=== PATIENT | female | born 1960 | race Caucasian/White ===

== ENCOUNTER 2017-04-29 18:47 | Inpatient (IN) | payer BC ==
[2017-04-29] MEDS ORDERED: LORazepam INJ* 2 MG/ML 1 ML VIAL IV PUSH ONE (19:29)
[2017-04-29 19:31] LABS: ABS Basophils 0 10^3/ul (0-0.2); ABS Eosinophils 0 10^3/ul (0-0.6); ABS Lymphocytes 0.8 10^3/ul (1.0-4.8); ABS Monocytes 0.9 10^3/ul (0-0.8); ABS Neutrophils 10.1 10^3/ul (1.5-7.7); ABS Nucleated RBC 0 10^3/ul; Eosinophil % 0 % (0-6); Hematocrit 38 % (35-47); Hemoglobin 13.1 g/dl (12.0-16.0); Lymphocyte % 6.9 % (25-47); Mean Corpuscular HGB Conc 34 g/dl (31-36); Mean Corpuscular Hemoglobin 32 pg (27-31); Mean Corpuscular Volume 94 fL (80-97); Mean Platelet Volume 8 um3 (7.4-10.4); Nucleated Red Blood Cells % 0; Platelet Count 235 10^3/ul (150-450); Red Cell Distribution Width 13 % (10.5-15); White Blood Count 11.9 10^3/ul (3.5-10.8)
[2017-04-29 19:52] LABS: EGFR Non-African American 46.6 (>60)
[2017-04-29] MEDS ORDERED: NS 0.9% 1000 ML* 1,000 ML IV ONE (20:17)
[2017-04-29] MEDS ORDERED: Insulin ASPART (NF) 100 UNIT/ML VIAL SUBCUT ONE (20:26)
--- NOTE | 2017-04-29 20:27 | RAD ---
Indication: Hypoxia. Single frontal view of the chest performed at 1928 hours was reviewed. Comparison is made with previous exam dated December 13, 2014. No mediastinal shift is noted. Heart is of normal size and configuration. Lung puckett appear hyperinflated. IMPRESSION: NO ACTIVE CARDIOPULMONARY DISEASE IS NOTED.
--- NOTE | 2017-04-29 20:35 | RAD ---
Indication: Hypoxia. Confusion. CT of the brain was performed without IV contrast. Ventricular structures are midline. No midline shift is noted. The extra-axial spaces are unremarkable. There is no evidence of intracranial mass or hemorrhage. No other high or low density lesions are identified. Mastoid air cells and paranasal sinuses are otherwise unremarkable. IMPRESSION: No intracranial mass or hemorrhage is noted.
[2017-04-29] MEDS ORDERED: Dextrose 50% Syringe 50 ML* 25 GM/50 ML SYRINGE IV PUSH PRN (20:40)
[2017-04-29] MEDS ORDERED: Insulin LISPRO* 1 UNITS UNIT SUBCUT ONE (20:40)
[2017-04-29 20:47] LABS: Urine Appearance Clear; Urine Blood 2+ (Negative); Urine Color Yellow; Urine Ketones Trace (Negative); Urine Protein Negative (Negative); Urine Specific Gravity 1.012 (1.010-1.030); Urine Urobilinogen Negative (Negative)
[2017-04-29] MEDS ORDERED: Potassium Chloride LIQUID* 20 MEQ PACKET PO ONE (21:55)
--- NOTE | 2017-04-29 22:16 | ED ---
Erika Mcintosh Gabriel, scribed for Isak Potts MD on 04/29/17 at 1859 . Altered Mental Status - HPI Summary HPI Summary: This patient is a 56 year old F BIBA to [facility] after she called 911 for confusion and smelling gas. EMS reports that she had a blood glucose of over 300 , O2 sat in the 70s on room air, and is anxious. Additionally they state she needs constant reassurance and will occasionally just scream in terror. The stove was on in her home without a flame, when EMS arrived they could smell natural gas and she had a window opened. EMS had a negative CO reading using their detector and placed her on a non-rebreather mask. Pt responds with letter when asked name and location. Natural gas levels were 8% in the house. LEVEL 5 CAVEAT: HPI limited due to severe AMS - History Of Current Complaint Chief Complaint: EDGeneral Stated Complaint: GAS EXPOSURE Hx Obtained From: EMS, Medical Records Onset/Duration: Still Present Timing: Constant Severity Initially: Severe Severity Currently: Severe Character: Confusion, Responsiveness - Allergies/Home Medications Allergies/Adverse Reactions: Allergies Allergy/AdvReac Type Severity Reaction Status Date / Time Penicillins Allergy See Comment Verified 04/29/17 21:05 Home Medications: Home Medications Cromolyn Sodium [Nasalcrom] 13 ml BOTH NARES DAILY PRN 04/29/17 [History Confirmed 04/29/17] Levothyroxine TAB* [Synthroid TAB*] 75 mcg PO DAILY 04/29/17 [History Confirmed 04/29/17] PMH/Surg Hx/FS Hx/Imm Hx Endocrine/Hematology History: Reports: Hx Thyroid Disease - Buddy's History: Reports: Hx Renal Disease - Cancer History Hx Chemotherapy: No Hx Radiation Therapy: No - Surgical History Surgery Procedure, Year, and Place: knee surgery; shoulder surgeries Infectious Disease History: Denies: Hx Clostridium Difficile, Hx Hepatitis, Hx Human Immunodeficiency Virus (HIV), Hx of Known/Suspected MRSA, Hx Shingles, Hx Tuberculosis, Hx Known/ Suspected VRE, Hx Known/Suspected VRSA, History Other Infectious Disease - Family History Known Family History: Negative: Cardiac Disease, Hypertension, Diabetes Family History: FHx of allergies. FHx of autoimmune disease - Social History Alcohol Use: None Substance Use Type: Reports: None Smoking Status (MU): Never Smoked Tobacco Review of Systems - ROS Summary Review of Systems Summary: LEVEL 5 CAVEAT: ROS limited due to severe AMS Positive: Shortness Of Breath Neurological: Other - AMS All Other Systems Reviewed And Are Negative: No Physical Exam - Summary Physical Exam Summary: Appearance: mildly pallor Skin: Warm, Dry, No rash, bruises on forehead and shins Eyes: Normal, PERRL, EOMI, sclera anicteric ENT: Normal Neck: Supple, nontender Respiratory: Clear to auscultation Cardiovascular: S1, S2, no murmur, no rub, no gallop Abdomen: Soft, nontender, no organomegaly Bowel sounds: Present Musculoskeletal: Normal, Strength/ROM Intact, no edema, pulses symmetrical Neurological: cranial nerves II-XII WNL, gait not tested, answers bizarrely, no appropriate responses, no verbal output other than single letters, does not follow commands. Triage Information Reviewed: Yes Vital Signs Reviewed: Yes Completion Of Physical Exam Limited Due To: Altered Mental Status, Level 5 Diagnostics - Laboratory Result Diagrams: 04/29/17 19:21 04/29/17 19:21 Lab Statement: Any lab studies that have been ordered have been reviewed, and results considered in the medical decision making process. - Radiology CXR Radiology Interpretation Completed By: Radiologist - NO ACTIVE CARDIOPULMONARY DISEASE IS NOTED. ED physician has reviewed this radiology report and agrees. - CT CT Brain CT Interpretation Completed By: Radiologist - no intracranial masses or hemorrhage. ED physician has reviewed this radiology report and agrees. - EKG 19:19 Cardiac Rate: Tachycardia EKG Rhythm: Sinus Bradycardia - at 101 BPM EKG Interpretation: ventricular bigeminy Re-Evaluation - Re-Evaluation First Eval Re-Evaluation Time: 19:55 Change: Improved Comment: Pt is awake and alert with some recollection of past events. She cannot explain why the natural gas was on. Altered Mental Statu Course/Dx - Course Assessment/Plan: This patient is a 56 year old F BIBA to [facility] after she called 911 for confusion and smelling gas. EMS reports that she had a blood glucose of over 300, O2 sat in the 70s on room air, and is anxious. Additionally they state she needs constant reassurance and will occasionally just scream in terror. The stove was on in her home without a flame, when EMS arrived they could smell natural gas and she had a window opened. EMS had a negative CO reading using their detector and placed her on a non-rebreather mask. Pt responds with letter when asked name and location. Natural gas levels were 8% in the house. LEVEL 5 CAVEAT: exam limited due to severe AMS. An EKG reveals ventricular bigeminy. CXR reveals, per radiologist, NO ACTIVE CARDIOPULMONARY DISEASE IS NOTED. CT Brain reveals, per radiologist, no intracranial masses or hemorrhage. Test results with no significant abnormalities except for a sodium of 123 and a blood glucose of 339. In the ED course the patient was given Ativan, Humalog, Novolog, and IV fluids. 1945 I contacted poison control they said there is no need for 100% oxygen. Dx desipramine hyponatremia and hypothyroidism. We discussed patient care with Dr. Lr and they accepted the patient for admission. Patient will be admitted. The patient is agreeable with this plan. - Diagnoses Provider Diagnoses: Desipramine hyponatremia , Hypothyroidism - Provider Notifications Discussed Care Of Patient With: William Lr Time Discussed With Above Provider: 20:05 Instructed by Provider To: Admit As Inpatient Discharge - Discharge Plan Condition: Fair Disposition: ADMITTED TO [facility] Referrals: Gayathri Kelley [Primary Care Provider] - The documentation as recorded by the Erika lucia Gabriel accurately reflects the service I personally performed and the decisions made by me, Isak Potts MD.
--- NOTE | 2017-04-29 23:41 | HP ---
H&P (Free Text) History and Physical: PCP: MADI Jimenez Date/Time: 04/29/2017 9502 CC: confusion HPI: Mrs Juárez is a 56YO female presenting via EMS which she called. Upon arrival, they reportedly discovered a natural gas leak with 8% within the home. Mrs Juárez was hanging out a window confused with an saO2 in the 70s which prompting increased to the 90s with [place] oxygen. After arriving to the ED, she reportedly cleared and became briefly lucid after lorazepam, but upon my evaluation was unable to provide any history and did not appear reliable for current status information as well. When asked why she had come in, she replied , "I don't know. I got home before I peed in the toilet." Other questions yielded similarly unrelated answers as she looked around the room confused. She is in no overt distress or objective pain. PMedHx unobtainable from patient hypothyroidism Ambulatory Orders Montelukast Sodium TAB* [Singulair 10 MG TAB*] 10 mg PO DAILY PRN 12/13/14 Cholecalciferol (Vitamin D3) [Vitamin D] 1,000 unit PO DAILY 01/28/17 Multivitamins/Minerals TAB* [Theragran/minerals TAB*] 1 tab PO DAILY 01/28/17 Niacin ER TAB* [Niaspan ER TAB*] 500 mg PO DAILY 01/28/17 Desipramine TAB* [Norpramin TAB*] 37.5 mg PO DAILY 02/02/17 Cromolyn Sodium [Nasalcrom] 13 ml BOTH NARES DAILY PRN 04/29/17 Levothyroxine TAB* [Synthroid TAB*] 67 mcg PO DAILY 04/29/17 Allergies Penicillins Allergy (Verified 04/29/17 21:05) See Comment pt states "I feel groggy after having it" PSurgHx unobtainable SocHx: unobtainable FamHx: unobtainable ROS: as above, otherwise reviewed and all were negative vitals: Vital Signs Temp 36.8 C 04/29/17 23:44 Pulse 50 04/29/17 23:44 Resp 18 04/29/17 23:44 BP 115/56 04/29/17 23:44 Pulse Ox 100 04/29/17 23:44 Intake & Output 04/29/17 04/29/1704/30/18 11:59 23:59 11:59 Intake Total 1000 Balance 1000 Weight 52.163 kg Intake: IV Fluids 1000 Constitutional: NAD, normally developed, thin white female HEENM: atraumatic; sclera/conjunctiva: anicteric/clear; hearing: clinically intact; oropharynx: clear, mucosa moist Neck: soft tissue: non-tender; thyroid: normal Pulmonary: clear to auscultation bilaterally, good aeration, no accessory muscle use CV: RR/RR, normal S1S2, no carotid bruit, no jugular venous distention, 2+ B DP/ PT, no edema Abdominal: soft, non-distended, non-tender, no rebound/guarding/rigidity, normoactive bowel sounds, no hepatosplenomegaly or masses, no costovertebral angle tenderness Musculoskeletal: general: grossly intact, no tenderness with palpation Integumental: normal appearance and texture of exposed skin Psychiatric orientation: AA&O to PP, not TS affect: confused mood: mildly agitated eye contact: poor content: unreliable memory: currently impaired responses: timely insight: poor Testing: Lab Results 04/29/17 04/29/17 04/29/17 Range/Units 19:21 19:21 19:21 WBC 11.9 H (3.5-10.8) 10^3/ul RBC 4.10 (4.0-5.4) 10^6/ul Hgb 13.1 (12.0-16.0) g/dl Hct 38 (35-47) % MCV 94 (80-97) fL MCH 32 H (27-31) pg MCHC 34 (31-36) g/dl RDW 13 (10.5-15) % Plt Count 235 (150-450) 10^3/ul MPV 8 (7.4-10.4) um3 Neut % (Auto) 85.6 H (38-83) % Lymph % (Auto) 6.9 L (25-47) % [place] % (Auto) 7.3 H (0-7) % Eos % (Auto) 0 (0-6) % Baso % (Auto) 0.2 (0-2) % Absolute Neuts (auto) 10.1 H (1.5-7.7) 10^3/ul Absolute Lymphs (auto) 0.8 L (1.0-4.8) 10^3/ul Absolute Monos (auto) 0.9 H (0-0.8) 10^3/ul Absolute Eos (auto) 0 (0-0.6) 10^3/ul Absolute Basos (auto) 0 (0-0.2) 10^3/ul Absolute Nucleated RBC 0 10^3/ul Nucleated RBC % 0 Carbon Monoxide Screen < 4 (<4.0) % Sodium 123 L (133-145) mmol/L Potassium 3.3 L (3.5-5.0) mmol/L Chloride 91 L (101-111) mmol/L Carbon Dioxide 18 L (22-32) mmol/L Anion Gap 14 H (2-11) mmol/L BUN 49 H (6-24) mg/dL Creatinine 1.19 H (0.51-0.95) mg/dL Est GFR ( Amer) 59.9 (>60) Est GFR (Non-Af Amer) 46.6 (>60) BUN/Creatinine Ratio 41.2 H (8-20) Glucose 372 H (70-100) mg/dL POC Glucose (mg/dL) (70-100) mg/dL Calcium 8.8 (8.6-10.3) mg/dL Total Bilirubin 1.50 H (0.2-1.0) mg/dL AST 96 H (13-39) U/L ALT 44 (7-52) U/L Alkaline Phosphatase 82 (34-104) U/L Total Protein 7.1 (6.4-8.9) g/dL Albumin 4.2 (3.2-5.2) g/dL Globulin 2.9 (2-4) g/dL Albumin/Globulin Ratio 1.4 (1-3) TSH (0.34-5.60) mcIU/mL Urine Color Urine Appearance Urine pH (5-9) Ur Specific [place] (1.010-1.030) Urine Protein (Negative) Urine Ketones (Negative) Urine Blood (Negative) Urine Nitrate (Negative) Urine Bilirubin (Negative) Urine Urobilinogen (Negative) Ur Leukocyte Esterase (Negative) Urine WBC (Auto) (Absent) Urine RBC (Auto) (Absent) Urine Bacteria (Absent) Hyaline Casts (Absent) Ur Random Sodium mmol/L Urine Glucose (Negative) Salicylates (<30) mg/dL Urine Opiates Screen (None Detect) Acetaminophen mcg/mL Ur Barbiturates Screen (None Detect) Ur Phencyclidine Scrn (None Detect) Ur Amphetamines Screen (None Detect) U Benzodiazepines Scrn (None Detect) Urine Cocaine Screen (None Detect) U Cannabinoids Screen (None Detect) Serum Alcohol (<10) mg/dL 04/29/17 04/29/17 04/29/17 Range/Units 19:35 19:35 19:35 WBC (3.5-10.8) 10^3/ul RBC (4.0-5.4) 10^6/ul Hgb (12.0-16.0) g/dl Hct (35-47) % MCV (80-97) fL MCH (27-31) pg MCHC (31-36) g/dl RDW (10.5-15) % Plt Count (150-450) 10^3/ul MPV (7.4-10.4) um3 Neut % (Auto) (38-83) % Lymph % (Auto) (25-47) % [place] % (Auto) (0-7) % Eos % (Auto) (0-6) % Baso % (Auto) (0-2) % Absolute Neuts (auto) (1.5-7.7) 10^3/ul Absolute Lymphs (auto) (1.0-4.8) 10^3/ul Absolute Monos (auto) (0-0.8) 10^3/ul Absolute Eos (auto) (0-0.6) 10^3/ul Absolute Basos (auto) (0-0.2) 10^3/ul Absolute Nucleated RBC 10^3/ul Nucleated RBC % Carbon Monoxide Screen (<4.0) % Sodium (133-145) mmol/L Potassium (3.5-5.0) mmol/L Chloride (101-111) mmol/L Carbon Dioxide (22-32) mmol/L Anion Gap (2-11) mmol/L BUN (6-24) mg/dL Creatinine (0.51-0.95) mg/dL Est GFR ( Amer) (>60) Est GFR (Non-Af Amer) (>60) BUN/Creatinine Ratio (8-20) Glucose (70-100) mg/dL POC Glucose (mg/dL) (70-100) mg/dL Calcium (8.6-10.3) mg/dL Total Bilirubin (0.2-1.0) mg/dL AST (13-39) U/L ALT (7-52) U/L Alkaline Phosphatase (34-104) U/L Total Protein (6.4-8.9) g/dL Albumin (3.2-5.2) g/dL Globulin (2-4) g/dL Albumin/Globulin Ratio (1-3) TSH (0.34-5.60) mcIU/mL Urine Color Yellow Urine Appearance Clear Urine pH 6.0 (5-9) Ur Specific [place] 1.012 (1.010-1.030) Urine Protein Negative (Negative) Urine Ketones Trace A (Negative) Urine Blood 2+ A (Negative) Urine Nitrate Negative (Negative) Urine Bilirubin Negative (Negative) Urine Urobilinogen Negative (Negative) Ur Leukocyte Esterase Negative (Negative) Urine WBC (Auto) Absent (Absent) Urine RBC (Auto) Trace(0-2/hpf) (Absent) Urine Bacteria Absent (Absent) Hyaline Casts Present A (Absent) Ur Random Sodium < 18 mmol/L Urine Glucose 3+(>=500 mg/dl) A (Negative) Salicylates (<30) mg/dL Urine Opiates Screen None detected (None Detect) Acetaminophen mcg/mL Ur Barbiturates Screen None detected (None Detect) Ur Phencyclidine Scrn None detected (None Detect) Ur Amphetamines Screen None detected (None Detect) U Benzodiazepines Scrn None detected (None Detect) Urine Cocaine Screen None detected (None Detect) U Cannabinoids Screen None detected (None Detect) Serum Alcohol (<10) mg/dL 04/29/17 04/29/17 04/29/17 Range/Units 19:37 20:22 22:18 WBC (3.5-10.8) 10^3/ul RBC (4.0-5.4) 10^6/ul Hgb (12.0-16.0) g/dl Hct (35-47) % MCV (80-97) fL MCH (27-31) pg MCHC (31-36) g/dl RDW (10.5-15) % Plt Count (150-450) 10^3/ul MPV (7.4-10.4) um3 Neut % (Auto) (38-83) % Lymph % (Auto) (25-47) % [place] % (Auto) (0-7) % Eos % (Auto) (0-6) % Baso % (Auto) (0-2) % Absolute Neuts (auto) (1.5-7.7) 10^3/ul Absolute Lymphs (auto) (1.0-4.8) 10^3/ul Absolute Monos (auto) (0-0.8) 10^3/ul Absolute Eos (auto) (0-0.6) 10^3/ul Absolute Basos (auto) (0-0.2) 10^3/ul Absolute Nucleated RBC 10^3/ul Nucleated RBC % Carbon Monoxide Screen (<4.0) % Sodium (133-145) mmol/L Potassium (3.5-5.0) mmol/L Chloride (101-111) mmol/L Carbon Dioxide (22-32) mmol/L Anion Gap (2-11) mmol/L BUN (6-24) mg/dL Creatinine (0.51-0.95) mg/dL Est GFR ( Amer) (>60) Est GFR (Non-Af Amer) (>60) BUN/Creatinine Ratio (8-20) Glucose (70-100) mg/dL POC Glucose (mg/dL) 339 H 241 H (70-100) mg/dL Calcium (8.6-10.3) mg/dL Total Bilirubin (0.2-1.0) mg/dL AST (13-39) U/L ALT (7-52) U/L Alkaline Phosphatase (34-104) U/L Total Protein (6.4-8.9) g/dL Albumin (3.2-5.2) g/dL Globulin (2-4) g/dL Albumin/Globulin Ratio (1-3) TSH 0.84 (0.34-5.60) mcIU/mL Urine Color Urine Appearance Urine pH (5-9) Ur Specific [place] (1.010-1.030) Urine Protein (Negative) Urine Ketones (Negative) Urine Blood (Negative) Urine Nitrate (Negative) Urine Bilirubin (Negative) Urine Urobilinogen (Negative) Ur Leukocyte Esterase (Negative) Urine WBC (Auto) (Absent) Urine RBC (Auto) (Absent) Urine Bacteria (Absent) Hyaline Casts (Absent) Ur Random Sodium mmol/L Urine Glucose (Negative) Salicylates < 2.50 (<30) mg/dL Urine Opiates Screen (None Detect) Acetaminophen < 15 mcg/mL Ur Barbiturates Screen (None Detect) Ur Phencyclidine Scrn (None Detect) Ur Amphetamines Screen (None Detect) U Benzodiazepines Scrn (None Detect) Urine Cocaine Screen (None Detect) U Cannabinoids Screen (None Detect) Serum Alcohol < 10 (<10) mg/dL ECG, personally reviewed: ventricular bigeminy rate 101, no ischemia CXR, personally reviewed: IMPRESSION: NO ACTIVE CARDIOPULMONARY DISEASE IS NOTED. CT brain WO, personally reviewed: IMPRESSION: No intracranial mass or hemorrhage is noted. Impression: 56F presenting with confusion after being found at home with a natural gas leak DIAGNOSIS & PLAN Primary AMS/confusion : obtain health summary from PCP : observation : telemetry : not explained by natural gas inhalation as this should have promptly resolved : ? underlying psychiatric disorder : supportive care hypoxia : supplemental oxygen hypoNatremia : IVFs, trend hyperglycemia : no known DX of DM : check A1c : given 5 units insulin in ED : ACHS glucometry w/ correctional insulin Secondary hypothyroidism : continue levothyroxine once reconciled Admission Rational: observation for confusion DVTp: SCDs Code Status: full HCP: unknown
[2017-04-30] MEDS ORDERED: CMCS:Melatonin (NF) 3 MG TAB PO PRN (00:37)
[2017-04-30] MEDS ORDERED: LORazepam INJ* 2 MG/ML 1 ML VIAL IV PRN (00:37)
[2017-04-30] MEDS ORDERED: Ondansetron INJ* 2 MG/ML VIAL IV PRN (00:37)
[2017-04-30] MEDS ORDERED: Albuterol 2.5 MG/3 ML NEB.SOL* (0.083%) INH PRN (00:37)
[2017-04-30] MEDS ORDERED: Montelukast Sodium TAB* 10 MG PO PRN (00:39)
[2017-04-30] MEDS: NS 0.9% 1000 ML* 1,000 ML IV SCH (02:10)
[2017-04-30] MEDS: Acetaminophen TAB* 325 MG PO PRN ×2 (04:51→12:23)
[2017-04-30 05:24] LABS: ABS Basophils 0 10^3/ul (0-0.2); ABS Eosinophils 0 10^3/ul (0-0.6); ABS Lymphocytes 1.5 10^3/ul (1.0-4.8); ABS Neutrophils 9.2 10^3/ul (1.5-7.7); ABS Nucleated RBC 0 10^3/ul; Eosinophil % 0.1 % (0-6); Hematocrit 35 % (35-47); Hemoglobin 12.5 g/dl (12.0-16.0); Lymphocyte % 12.5 % (25-47); Mean Corpuscular HGB Conc 36 g/dl (31-36); Mean Corpuscular Hemoglobin 32 pg (27-31); Mean Corpuscular Volume 90 fL (80-97); Mean Platelet Volume 8 um3 (7.4-10.4); Nucleated Red Blood Cells % 0; Platelet Count 258 10^3/ul (150-450); Red Blood Count 3.92 10^6/ul (4.0-5.4); Red Cell Distribution Width 13 % (10.5-15); White Blood Count 11.7 10^3/ul (3.5-10.8)
[2017-04-30 05:46] LABS: EGFR Non-African American 93.6 (>60)
[2017-04-30] MEDS: Levothyroxine TAB* 75 MCG TAB PO SCH (06:42)
[2017-04-30] MEDS: Insulin LISPRO* 1 UNITS UNIT SUBCUT SCH ×4 (08:57→21:07)
[2017-04-30] MEDS: Niacin ER TAB* 500 MG PO SCH (09:03)
[2017-04-30] MEDS: Docusate CAP* 100 MG PO SCH ×2 (09:03→21:07)
--- NOTE | 2017-04-30 11:16 | PN ---
Hospitalist Progress Note Date of Service: 04/30/17 I have seen and examined Ms. Juárez with Ban Peterson NP. Ms. Juárez was admitted for CO exposure (? this is unclear; she called EMS and was found confused in her home). This morning on my exam, she is afebrile, normotensive. She has an inappropriate affect with elevated mood She can tell me her name, but not where she is nor the year. She is unable to follow simple commands or answer simple questions. Her response to simple questions is often "L" or "A" or "two". She has poor coordination, poor recall. She is unable to count backwards or spell words. I attempted to reach her brother, who is the only contact listed, but the phone number is not a cell or home; it is a business. Check carboxyhemoglobin level. Consult neurology. Consult social work to find family.
--- NOTE | 2017-04-30 14:19 | CONSULT ---
Consult Consult: CRITICAL CARE MEDICINE DATE: 04/30/17 TIME: 1345 PRIMARY CARE PROVIDER: Ugo (but only seen once for maintenance) REFERRING PROVIDER: [place] REASON/CHIEF COMPLAINT: delirium vs encephalopathy HISTORY OF PRESENT ILLNESS: 56 F admitted with delirium vs encephalopathy thought to be due to CO poisoning, as she was found in house with window open, stove on with gas smell and initial sats 70. correct with O2. CO level neg. limited history so far, but not diabetic and yet hyperglycemic and hyponatremic on admission. these have since corrected. she remains altered, confused and has tca on her med list with signs of anticholenergic affects and brought to icu for observation and benzo needs. REVIEW OF SYSTEMS: As per HPI, limited sec to acuity. PAST MEDICAL HISTORY: As per HPI, limited sec to history. hypot4 MEDICATIONS: Reviewed, unconfirmed by me ALLERGIES: PCN? SOCIAL HISTORY: Reviewed, unclear. denies tob use, etoh or drugs FAMILY HISTORY: Noncontributory at present. PHYSICAL EXAM: Vital Signs: Reviewed. Neurologic: awake. answers a few question but then tangential vs abrupt. vilchis. no astreixis for me. tongue midline. cn intact. HEENT: anciteric. pupils non dil and a bit slow to react but they do. mm dry. Cardiovascular: S1 S2 about 100. Respiratory: clear bl Abdomen: soft, thin; nt Extremities: warm with hot at hands and feet. Access: piv LABS: Reviewed. IMAGING: Reviewed. ecg with bigeniney otherwise no acute injury MEDICATIONS: Reviewed. ASSESSMENT: 56 F Delirium vs encephalopathy vs even underlying dementia features that may need chronic vasc workup ultimately. Encephalopathy: unclear primary, and may just be multifactorial: sec to CO post state now?, hypoxia high on the list, metabolic hyponatremia/ hyperglycemia, vs toxic affect from tca with anticholenergic affects. PLAN: ICU observation IVF hydration Benzos as needed not a high degree of anticholenegeric affects to warrant more then prn benzos. can f/u ecg to ensure QT ok, and otherwise could need bicarb Serum bicarb was a touch low and ck up a bit. question again tca toxic affects vs post hypoxia. Time and observation. primary service trying to find family or other history info is she on the despiramine sec to bulimia?? likely needing psych eval soon and social work. continue to hold Supportive and preventative care as ordered. Will f/u with primary team Disposition: ICU obs Code Status: Full Critical Care Time: 35min FJuan Zheng DO
[2017-04-30] MEDS ORDERED: LORazepam INJ* 2 MG/ML 1 ML VIAL ONE (14:27)
[2017-04-30] MEDS: LORazepam INJ* 2 MG/ML 1 ML VIAL IV PUSH PRN ×2 (14:31→22:03)
--- NOTE | 2017-04-30 16:55 | PN ---
Subjective Date of Service: 04/30/17 Interval History: Examined patient at bedside confused to place and time. Unable to answer questions appropriately, responds with "A" or "L". Does answer some questions with no response. Follows some commands but not others. Not sure why she is here. Family History: Unchanged from Admission Social History: Unchanged from Admission Past Medical History: Unchanged from Admission Objective Active Medications: Acetaminophen (Tylenol Tab*) 650 mg PO Q6H PRN PRN Reason: FEVER/PAIN Last Admin: 04/30/17 12:23 Dose: 650 mg Albuterol (Ventolin 2.5 Mg/3 Ml Neb.Mariama*) 2.5 mg INH Q2H PRN PRN Reason: SOB/WHEEZING Dextrose (D50w Syringe 50 Ml*) 12.5 gm IV PUSH .FOR FS < 60 - SS PRN PRN Reason: FS < 60 Docusate Sodium (Colace Cap*) 200 mg PO BID [facility] Last Admin: 04/30/17 09:03 Dose: 200 mg Sodium Chloride (Ns 0.9% 1000 Ml*) 1,000 mls @ 125 mls/hr IV PER RATE [facility] Last Admin: 04/30/17 02:10 Dose: 125 mls/hr Insulin Human Lispro (Humalog*) 0 units SUBCUT ACHS [facility] PRN Reason: Protocol Last Admin: 04/30/17 11:53 Dose: Not Given Levothyroxine Sodium (Synthroid Tab*) 75 mcg PO DAILY@0600 [facility] Last Admin: 04/30/17 06:42 Dose: 75 mcg Lorazepam (Ativan Inj*) 1 mg IV PUSH Q4H PRN PRN Reason: ANXIETY Last Admin: 04/30/17 14:31 Dose: 1 mg Melatonin (Melatonin (Nf)) 3 mg PO BEDTIME PRN; Protocol PRN Reason: Sleep Montelukast Sodium (Singulair Tab*) 10 mg PO DAILY PRN PRN Reason: Allergy Symptoms Niacin (Niaspan Er Tab*) 500 mg PO DAILY [facility] Last Admin: 04/30/17 09:03 Dose: 500 mg Vital Signs - 8 hr 04/30/17 04/30/17 04/30/17 13:45 13:52 14:00 Temperature 100.6 F Pulse Rate 104 64 55 Respiratory 19 23 29 Rate Blood Pressure 134/70 132/65 118/72 (mmHg) O2 Sat by Pulse 97 98 97 Oximetry 04/30/17 04/30/17 04/30/17 14:15 14:30 14:31 Temperature Pulse Rate 56 55 Respiratory 28 24 21 Rate Blood Pressure 134/70 125/69 (mmHg) O2 Sat by Pulse 97 97 Oximetry 04/30/17 04/30/17 04/30/17 14:32 14:45 15:00 Temperature Pulse Rate 53 48 Respiratory 25 18 24 Rate Blood Pressure 117/64 (mmHg) O2 Sat by Pulse 97 98 Oximetry Oxygen Devices in Use Now: None Appearance: Confused, delusional, thin Eyes: No Scleral Icterus, PERRLA, - - pupils 3 mm bilat Ears/Nose/Mouth/Throat: Clear Oropharnyx, - - tongue is red and dry, mucous membranes are very dry Neck: NL Appearance and Movements; NL JVP, Trachea Midline Respiratory: Symmetrical Chest Expansion and Respiratory Effort, Clear to Auscultation Cardiovascular: NL Sounds; No Murmurs; No JVD, RRR Abdominal: NL Sounds; No Tenderness; No Distention Extremities: No Clubbing, Cyanosis - bilat hand and feet bright red that abruptly stops at the wrist and ankles Skin: No Rash or Ulcers Neurological: - - confused, delusional, alert oriented to name only, unable follow complex commands Nutrition: Taking PO's Result Diagrams: 04/30/17 05:11 04/30/17 05:11 Assess/Plan/Problems-Billing Assessment: Ms. Juárez is a 56 y.o female that was brought to the ER for evaluation of carbon monoxide exposure from a natural gas leak from her stove. Pt was found to have o2 saturations in the 70's on EMS's arrival. Patient remains confused and delusional, exhibiting bizarre behaviors. - Patient Problems (1) Confusion and disorientation Current Visit: Yes Status: Acute Code(s): F99 - MENTAL DISORDER, NOT OTHERWISE SPECIFIED SNOMED Code(s): 82373406 Comment: ~unknown etiology - CT brain WNL, urine clear ~suspect this could be related to carbon monoxide poisoning though her Carbon monoxide level was negative ~ She is also taking tricyclics despiermine- ? possible overdose though EKG without evidence of QT prolongation- poison control contacted and advised most critical period is the first 6 hours after ingestion, will obtain stat EKG now - monitor EKG. ~ ? if this could be possibly related to a manic episode will consult Psych when stable ~ neurology consulted ~ ammonia level drawn- slight elevation 55 (2) Hyperglycemia Current Visit: Yes Status: Acute Code(s): R73.9 - HYPERGLYCEMIA, UNSPECIFIED SNOMED Code(s): 45710514 Comment: resolved Blood glucose on arrival was 372 A1c 5.6 (3) Carbon monoxide exposure Current Visit: Yes Status: Acute Code(s): Z77.29 - CONTACT W AND (SUSPECTED ) EXPOSURE TO OTH HAZARDOUS SUBSTNC SNOMED Code(s): 86265227 Comment: ~ Carbom monoxide level - negative (4) Hyponatremia Current Visit: Yes Status: Acute Code(s): E87.1 - HYPO-OSMOLALITY AND HYPONATREMIA SNOMED Code(s): 16583386 Comment: Iv normal saline- initial NA level was 123 now 131 continue saline (5) DVT prophylaxis Current Visit: Yes Status: Acute Code(s): ZHP6744 - SNOMED Code(s): 633099876 Comment: SCD's (6) Full code status Current Visit: Yes Status: Acute Code(s): Z78.9 - OTHER SPECIFIED HEALTH STATUS SNOMED Code(s): 871400717 Status and Disposition: inpatient
--- NOTE | 2017-04-30 17:13 | CONS ---
NEUROLOGY CONSULTATION: DATE OF CONSULT: 04/30/17 LOCATION: She is in room 435. REFERRING PROVIDER: Bethany Golden DO PRIMARY CARE PHYSICIAN: Dr. Zuleyma Arizmendi. CHIEF COMPLAINT: Delirium. HISTORY OF PRESENT ILLNESS: Bindu Juárez is a 56-year-old woman who was brought in by ambulance to [facility] emergency room after she apparently called the ambulance herself. There were no bystanders and no other history from any other family member or friends. Ambulance records indicate that her fingerst ick blood sugar was 369 and her oxygen saturation was initially... DICTATION ENDS ABRUPTLY [id number]/CPS #: [id number]
--- NOTE | 2017-04-30 17:28 | PN ---
Hospitalist Progress Note Date of Service: 04/30/17 Patient transferred to the ICU per Dr. Rosenberg's recommendation~ questioning possible toxicity of desipramine and anticholinergic reaction. Patient is yelling, confused and delusional. Patient reevaluated at 1700 She has received Ativan 1 mg ~ she appears calm- she remains confusion with periods of clear mentation. States that she uses herbal supplements at home and that she freezes taro root and eats it. She continue to have periods of delusional thoughts. She continue to be confused to place and time. stating that the year is 1959.
--- NOTE | 2017-04-30 18:28 | CONS ---
NEUROLOGY CONSULTATION: ADDENDUM: Ambulance records indicate that her fingerstick blood sugar was 369 and her heart rate was in the 50s. She was very confused. Oxygen saturation was apparently around 80% and perhaps lower and came up to 100% with supplemental oxygen by mask. In the emergency room, she was described as extremely confused and uncooperative. She was afebrile and blood pressure was 152/58 initially. Heart rate was recorded as little as 47 and as high as 93, but she has been tachycardic here on the floor. Her initial laboratory studies were notable for an elevated blood glucose at 372, which came down rapidly and has been normal since. Her carbon dioxide was low at 18 and her sodium was low at 123. It was corrected to 131 within about 10 hours. Her AST was somewhat elevated at 84 and ammonia level mildly elevated at 55. Her white blood cell count was slightly elevated at 11.9 with 85.6% neutrophils. Carbon monoxide screen was less than 4%. She continued to be very confused and agitated on the medical floor. She has been yelling out repeatedly. She has been on bigeminy on telemetry typically running about 100 beats per minute. This is apparently old as she was evaluated about a year ago by Dr. Wilburn in preparation for a colonoscopy. HOME MEDICATIONS: Were listed as: 1. Levothyroxine. 2. Cromolyn. 3. Multivitamins. 4. Desipramine 37.5 mg. 5. Singulair 10 mg. 6. Vitamin D. I spoke with her primary care provider, Dr. Zuleyma Arizmendi. She had last seen her about a year ago and was not aware of her being on desipramine. She said that the patient believes she has dog allergies and wears a mask walking down the street. She is not aware of any specific psychiatric diagnosis, however. The patient is able to answer some questions, but is very unreliable and yells out repeatedly. She denies having headaches several times, but then states that she has a headache. I asked her if she had taken her desipramine today and she just looks at me and does not answer. It is hard to get any other consistent responses regarding review of systems. SOCIAL HISTORY: According to the medical record, she is a nonsmoker and no history of alcohol abuse. FAMILY HISTORY: Unobtainable. PHYSICAL EXAM: She is extremely thin woman who looks very undernourished. Her skin is extremely warm, especially her hands and her feet, which are also red and slightly edematous. Her mouth is extremely dry. Her skin is a little bit moist. Other than redness, I do not see any rashes. There is no evidence of head trauma. Her neck is supple. Most recent vital signs: Temperature 97.9 with a T-max of 100.4 by temporal scan early this morning. Blood pressure most recently 140/60, heart rate is listed as 54 but on the monitor it is running close to 100 in bigeminy. Respiratory rate 20, oxygen saturation is 100% on nasal cannula 2.5 L. Heart is in irregular rhythm and sounds to be in bigeminy. I do not hear murmurs. Lungs are clear anterolaterally. Carotid pulses are bounding and there are no cervical bruits. Oral mucosa is very dry, but I do not see any oral trauma. Neurologically, pupils react weakly from 4 down to about 3 mm. Funduscopic exam reveals sharp disks bilaterally. She tends to fix her gaze off to the left looking at the wall and reading the sign with her vitals and other information on it, but does look about the room fully. She does respond to finger counting bilaterally with double simultaneous stimulation correctly. Facial musculature is symmetric. Nasal tickle to cotton is symmetric. Speech is fairly clear as she yells out various words. Motor exam reveals normal tone in the limbs. She has a diffuse decreased muscle bulk, which does not appear to be particularly weak. There is no drift of the limbs. There is a little myoclonus in the fingers but no asterixis or coarse tremors. She is not able to follow commands for [id number] or rapid alternating maneuvers. Reflexes are generally hypoactive, but present. Plantar responses are flexor bilaterally. She is somewhat hypervigilant, but extremely inattentive. She yells out "Trump " and other single words repetitively. Occasionally, she stops to answer a question, but then her attention drifts off again. DIAGNOSTIC STUDIES/LAB DATA: Includes a CT of the brain, which I reviewed the images of and which was interpreted as normal. Carbon monoxide screen both yesterday and today is less than 4%. Chemistry is notable for a sodium of 123 when she came in, up to 131 by 5 this morning. Carbon dioxide was 18 when she came in, 20 at 5 this morning. Her blood glucose at admission was 372 and by this morning was 93. Her AST is elevated at 84 and was 96 yesterday. Ammonia elevated this morning at 55. TSH normal on admission at 0.94. Urinalysis on admission, specific gravity of 1.002, pH 6, 2+ blood, 3+ glucose. There is no CPK done as of yet. Urine tox screen from admission is negative. IMPRESSION: Agitated delirium in the setting of apparent natural gas toxin exposure. She has stigmata of anticholinergic toxicity and I am suspicious she may have overdosed on a tricyclic antidepressant. I have asked the Lab to send out a desipramine and imipramine level on the blood that was drawn in the ER and they do have a tube available. I recommend that she be transferred to intensive care unit for close cardiac monitoring. I have ordered a CPK as well as the toxin levels. I spoke with Dr. Bethany Golden of the hospitalist service and relayed my concerns. A repeat EKG has been ordered. Her electrolytes and liver enzymes and renal function to be closely monitored as well as her cardiac function. If it does inspector returned materials that she had an overdose or attempted suicide by gas inhalation, then Psychiatry will of course need to be consulted when she is coherent. [id number]/[facility] #: [id number] [place]
[2017-05-01] MEDS: Levothyroxine TAB* 75 MCG TAB PO SCH (05:25)
[2017-05-01 05:38] LABS: ABS Basophils 0 10^3/ul (0-0.2); ABS Eosinophils 0 10^3/ul (0-0.6); ABS Lymphocytes 1.4 10^3/ul (1.0-4.8); ABS Monocytes 0.5 10^3/ul (0-0.8); ABS Neutrophils 4.2 10^3/ul (1.5-7.7); ABS Nucleated RBC 0 10^3/ul; Eosinophil % 0.7 % (0-6); Hematocrit 33 % (35-47); Hemoglobin 11.4 g/dl (12.0-16.0); Mean Corpuscular HGB Conc 35 g/dl (31-36); Mean Corpuscular Hemoglobin 32 pg (27-31); Mean Corpuscular Volume 93 fL (80-97); Mean Platelet Volume 8 um3 (7.4-10.4); Nucleated Red Blood Cells % 0.1; Platelet Count 173 10^3/ul (150-450); Red Blood Count 3.53 10^6/ul (4.0-5.4); Red Cell Distribution Width 13 % (10.5-15); White Blood Count 6.2 10^3/ul (3.5-10.8)
[2017-05-01 05:58] LABS: EGFR Non-African American 139.5 (>60)
[2017-05-01] MEDS: Insulin LISPRO* 1 UNITS UNIT SUBCUT SCH ×4 (07:40→20:31)
[2017-05-01] MEDS: NS 0.9% 1000 ML* 1,000 ML IV SCH ×2 (07:47→16:57)
[2017-05-01] MEDS: Docusate CAP* 100 MG PO SCH ×2 (08:12→22:09)
[2017-05-01] MEDS: Niacin ER TAB* 500 MG PO SCH (08:13)
[2017-05-01] MEDS ORDERED: Potassium Chlor TAB* 10 MEQ TAB.ER PO ONE ×2 (08:47→16:20)
--- NOTE | 2017-05-01 10:16 | PN ---
Subjective Date of Service: 05/01/17 Interval History: states that she feels more alert today and head feels more clear. Pt denies chest pain or shortness of breath. denies n/v/d. Patient states that she think she knows why she was so confused yesterday. patient states that she was in a "bad state" for 3 days and did not eat or drink anything. When questioned about "bad state" she is unable to describe reason why she was unable to eat. Family History: Unchanged from Admission Social History: Unchanged from Admission Past Medical History: Unchanged from Admission Objective Active Medications: Acetaminophen (Tylenol Tab*) 650 mg PO Q6H PRN PRN Reason: FEVER/PAIN Last Admin: 04/30/17 12:23 Dose: 650 mg Albuterol (Ventolin 2.5 Mg/3 Ml Neb.Mraiama*) 2.5 mg INH Q2H PRN PRN Reason: SOB/WHEEZING Dextrose (D50w Syringe 50 Ml*) 12.5 gm IV PUSH .FOR FS < 60 - SS PRN PRN Reason: FS < 60 Docusate Sodium (Colace Cap*) 200 mg PO BID [facility] Last Admin: 05/01/17 08:12 Dose: Not Given Sodium Chloride (Ns 0.9% 1000 Ml*) 1,000 mls @ 125 mls/hr IV PER RATE [facility] Last Admin: 05/01/17 07:47 Dose: 125 mls/hr Insulin Human Lispro (Humalog*) 0 units SUBCUT ACHS [facility] PRN Reason: Protocol Last Admin: 05/01/17 07:40 Dose: Not Given Levothyroxine Sodium (Synthroid Tab*) 75 mcg PO DAILY@0600 [facility] Last Admin: 05/01/17 05:25 Dose: 75 mcg Lorazepam (Ativan Inj*) 1 mg IV PUSH Q4H PRN PRN Reason: ANXIETY Last Admin: 04/30/17 22:03 Dose: 1 mg Melatonin (Melatonin (Nf)) 3 mg PO BEDTIME PRN; Protocol PRN Reason: Sleep Montelukast Sodium (Singulair Tab*) 10 mg PO DAILY PRN PRN Reason: Allergy Symptoms Niacin (Niaspan Er Tab*) 500 mg PO DAILY [facility] Last Admin: 05/01/17 08:13 Dose: Not Given Vital Signs - 8 hr 05/01/17 05/01/17 05/01/17 03:00 03:01 04:00 Temperature 98.0 F Pulse Rate 41 41 43 Respiratory 18 22 18 Rate Blood Pressure 117/60 104/59 (mmHg) O2 Sat by Pulse 99 100 98 Oximetry 05/01/17 05/01/17 05/01/17 05:00 05:01 06:00 Temperature Pulse Rate 42 41 58 Respiratory 16 13 15 Rate Blood Pressure 109/63 (mmHg) O2 Sat by Pulse 99 98 99 Oximetry 05/01/17 05/01/17 05/01/17 06:01 07:00 07:36 Temperature 98.9 F Pulse Rate 39 38 Respiratory 19 19 Rate Blood Pressure 110/66 131/70 (mmHg) O2 Sat by Pulse 98 100 Oximetry 05/01/17 08:00 Temperature Pulse Rate 46 Respiratory 16 Rate Blood Pressure 116/67 (mmHg) O2 Sat by Pulse 98 Oximetry Oxygen Devices in Use Now: None Appearance: alert, appears comfortable resting in bed Eyes: No Scleral Icterus Ears/Nose/Mouth/Throat: Clear Oropharnyx, Mucous Membranes Moist Neck: NL Appearance and Movements; NL JVP, Trachea Midline Respiratory: Symmetrical Chest Expansion and Respiratory Effort, Clear to Auscultation Cardiovascular: NL Sounds; No Murmurs; No JVD, No Edema Abdominal: NL Sounds; No Tenderness; No Distention Extremities: No Edema, No Clubbing, Cyanosis Skin: No Rash or Ulcers Neurological: Alert and Oriented x 3 Nutrition: Taking PO's Result Diagrams: 05/01/17 05:12 05/01/17 15:33 Assess/Plan/Problems-Billing Assessment: Ms. Juárez is a 56 y.o female that was brought to the ER for evaluation of carbon monoxide exposure from a natural gas leak from her stove. Pt was found to have o2 saturations in the 70's on EMS's arrival. Patient remains confused and delusional, exhibiting bizarre behaviors. - Patient Problems (1) Confusion and disorientation Current Visit: Yes Status: Acute Code(s): F99 - MENTAL DISORDER, NOT OTHERWISE SPECIFIED SNOMED Code(s): 86768812 Comment: ~unknown etiology - CT brain WNL, urine clear ~suspect this could be related to carbon monoxide poisoning though her Carbon monoxide level was negative ~ She is also taking tricyclics desipramine- ? possible overdose though EKG without evidence of QT prolongation- poison control contacted and advised most critical period is the first 6 hours after ingestion~ patient reports that she did not take her desipramine for 3 days..but her story is inconsistent ~ ? if this could be possibly related to a manic episode- Psych was consulted ~ neurology consulted ~patient states that she did not eat or drink for approx. 3 days because she was in a bad state. (2) Hyperglycemia Current Visit: Yes Status: Acute Code(s): R73.9 - HYPERGLYCEMIA, UNSPECIFIED SNOMED Code(s): 51983697 Comment: resolved Blood glucose 92-141 A1c 5.6 (3) Carbon monoxide exposure Current Visit: Yes Status: Acute Code(s): Z77.29 - CONTACT W AND (SUSPECTED ) EXPOSURE TO OTH HAZARDOUS SUBSTNC SNOMED Code(s): 44168134 Comment: ~ Carbom monoxide level - negative (4) Hyponatremia Current Visit: Yes Status: Acute Code(s): E87.1 - HYPO-OSMOLALITY AND HYPONATREMIA SNOMED Code(s): 72721445 Comment: Iv normal saline- initial NA level was 123 Na level today was 135 ~ patient drinking water continue saline (5) Polyuria Current Visit: Yes Status: Acute Code(s): R35.8 - OTHER POLYURIA SNOMED Code(s): 28634121 Comment: Patient with 6000 cc urine output ~ suspect this could be related to drug toxcitiy ~desipramine level pending ~will continue to monitor BMP and Magnesium and replace as needed ~ will continue NS at 125 cc/hr ~ will consult nephrology in the AM if polyuria continues ~ DI in the differential (6) Hypokalemia Current Visit: Yes Status: Acute Code(s): E87.6 - HYPOKALEMIA SNOMED Code( s): 76588345 Comment: Potassium level 3.4 today ~ 30 meq kcl given po Repeat potassium level at 1500~ 3.4 ~ will give additional dose of potassium 40 meq (7) DVT prophylaxis Current Visit: Yes Status: Acute Code(s): KDU4593 - SNOMED Code(s): 648879589 Comment: SCD's (8) Full code status Current Visit: Yes Status: Acute Code(s): Z78.9 - OTHER SPECIFIED HEALTH STATUS SNOMED Code(s): 673537327 Status and Disposition: inpatient ~ will need SS and case management
[2017-05-01] MEDS ORDERED: Thiamine IV* 500 MG in NS 0.9% 250 ML* 250 ML IV ONE (11:09)
[2017-05-01] MEDS ORDERED: Cyanocobalamin INJ * 1,000 MCG/ML VIAL 1 ML VIAL IM ONE (11:10)
[2017-05-01] MEDS ORDERED: Magnesium Sulfate 2 GM IV* 2 GM/50 ML BAG IVPB ONE (14:33)
--- NOTE | 2017-05-01 14:50 | CONS ---
NEUROLOGY FOLLOWUP NOTE: DATE OF FOLLOWUP: 05/01/17. ADDENDUM: MEDICATIONS: Are reviewed and she is on: 1. Albuterol p.r.n. 2. Insulin p.r.n. but none given. 3. Colace 200 mg p.o. b.i.d. 4. Levothyroxine 75 mcg p.o. daily. 5. Melatonin 3 mg p.o. q.h.s. 6. Niaspan 500 mg p.o. daily. PHYSICAL EXAM: She remains extremely thin, but her mouth is no longer dry. Blood pressure 116/67, heart rate 90 and in bigeminy on the monitor, respiratory rate 16, oxygen saturation is 98% on room air. Temperature is 98.9. Skin is warm and dry, but no longer hot and erythematous. Neck remain supple. Neurologically, pupils react equally from 4 to 2 mm. Eye movements are normal and there is no nystagmus. Facial musculature is symmetric. Sensory exam reveals mild vibratory loss in the feet, but normal proprioception. Reflexes are intact at the knees if not brisk and ankle reflexes are hypoactive but present. Plantar responses remain flexor. There is no tremor, asterixis, or myoclonus. She is alert and oriented to person and place. She is not able to give a good reconciliation of what happened in the last few days. She does not remember coming to the hospital, but she believes she came by ambulance. She seems to be confabulating regarding details of the last several days. LABORATORY DATA: From today reveals a chemistry profile with a potassium of 3.4 and a sodium of 135. Creatinine remains normal at 0.46. Her CPK was elevated yesterday at 1484, down to 923 this morning. Calciums are little bit low at 8.2. Fingerstick glucose is 112 this morning. CBC this morning notable for hemoglobin dropped a little bit to 11.4, otherwise normal CBC. White blood cell count is normalized. IMPRESSION: Delirium suspected to be toxic. Also, from natural gas inhalation - induced hypoxia. She is certainly much better than yesterday. 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 She has desipramine and imipramine level pending from admission, which will probably not come back until next week. Psychiatry will see her even though she does not admit to any type of suicidal ideation. Her electrolytes are currently in good shape other than a slight low potassium, which she was given supplements of. I would recommend checking a thymine, and B12 level, and then supplementing it. She is certainly undernourished clinically. We will check her vitamin D level as well. I would recommend an MRI of the brain for tomorrow to look for evidence of central pontine myelinolysis or other abnormalities, which might have contributed to her mental status changes at admission. [id number]/[facility] #: [id number] [place]
[2017-05-01 16:09] LABS: EGFR Non-African American 136.1 (>60)
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
[2017-05-01 21:50] LABS: EGFR Non-African American 121.1 (>60)
[2017-05-01] MEDS: SODIUM FLUORIDE TOPICAL SCH (23:53)
[2017-05-01] MEDS: SODIUM BICARBONATE TOPICAL SCH (23:53)
[2017-05-02] MEDS: NS 0.9% 1000 ML* 1,000 ML IV SCH ×2 (02:16→09:25)
[2017-05-02] MEDS: Levothyroxine TAB* 75 MCG TAB PO SCH ×2 (05:48→05:53)
[2017-05-02 06:05] LABS: ABS Basophils 0 10^3/ul (0-0.2); ABS Eosinophils 0 10^3/ul (0-0.6); ABS Lymphocytes 0.8 10^3/ul (1.0-4.8); ABS Monocytes 0.5 10^3/ul (0-0.8); ABS Neutrophils 4.9 10^3/ul (1.5-7.7); ABS Nucleated RBC 0 10^3/ul; Eosinophil % 0.7 % (0-6); Hematocrit 34 % (35-47); Hemoglobin 11.8 g/dl (12.0-16.0); Lymphocyte % 13.1 % (25-47); Mean Corpuscular HGB Conc 35 g/dl (31-36); Mean Corpuscular Hemoglobin 32 pg (27-31); Mean Corpuscular Volume 93 fL (80-97); Mean Platelet Volume 8 um3 (7.4-10.4); Nucleated Red Blood Cells % 0; Platelet Count 177 10^3/ul (150-450); Red Blood Count 3.64 10^6/ul (4.0-5.4); Red Cell Distribution Width 13 % (10.5-15); White Blood Count 6.4 10^3/ul (3.5-10.8)
[2017-05-02 06:22] LABS: EGFR Non-African American 143.1 (>60)
[2017-05-02] MEDS ORDERED: Magnesium Sulfate 2 GM IV* 2 GM/50 ML BAG IVPB ONE (08:29)
[2017-05-02] MEDS: Insulin LISPRO* 1 UNITS UNIT SUBCUT SCH ×3 (09:14→19:30)
[2017-05-02] MEDS: Niacin ER TAB* 500 MG PO SCH (10:12)
[2017-05-02] MEDS: Docusate CAP* 100 MG PO SCH (10:12)
[2017-05-02] MEDS: SODIUM FLUORIDE TOPICAL SCH ×2 (11:15→22:39)
[2017-05-02] MEDS: SODIUM BICARBONATE TOPICAL SCH ×2 (11:15→22:39)
--- NOTE | 2017-05-02 12:27 | RAD ---
Indication: Pre-MRI scan. 2 views of the orbits demonstrates no evidence of radiopaque foreign body. IMPRESSION: No radiopaque foreign body is identified.
--- NOTE | 2017-05-02 12:29 | RAD ---
Indication: Pre-MRI foreign body. Flat plate of the abdomen demonstrates metallic body in the pelvis consistent with temperature sensing Hunter catheter. Precaution should be made. Otherwise no other radiopaque foreign body is noted. IMPRESSION: Temperature sensing Hunter catheter. Otherwise no foreign body is identified.
--- NOTE | 2017-05-02 13:00 | RAD ---
HISTORY: Delirium COMPARISONS: October 30, 2009 TECHNIQUE: The following sequences were obtained of the head: Sagittal T1-weighted images, axial T2-weighted images, axial FLAIR images, axial susceptibility weighted images, axial T1-weighted images. Additionally, axial diffusion-weighted images were obtained with calculated apparent diffusion coefficients. FINDINGS: HEMORRHAGE/INFARCT: There is no hemorrhage or acute infarct. MASSES/SHIFT: There is no mass or shift. EXTRA-AXIAL SPACES/MENINGES: There are no extra-axial fluid collections. SULCI AND VENTRICLES: The sulci and ventricles are normal in size and position for the patient's stated age. CEREBRUM: There are few scattered small foci of elevated T2/FLAIR signal within the periventricular and subcortical white matter. These can identified in retrospect on the previous examination and are stable, accounting for differences in technique. BRAINSTEM: There are no focal parenchymal abnormalities. CEREBELLUM: There are no focal parenchymal abnormalities. The cerebellar tonsils are normal in size and position. SELLA: The sella is normal. PINEAL: The pineal region is clear. CP ANGLE/TEMPORAL BONES: The labyrinthine structures are grossly normal. VESSELS: Normal flow-voids are noted within the visualized vertebral vasculature. DIFFUSION ABNORMALITIES: There are no diffusion abnormalities. PARANASAL SINUSES/MASTOIDS: The paranasal sinuses are clear. ORBITS: The orbits are unremarkable. BONES AND SOFT TISSUE: No bone or soft tissue abnormalities are noted. OTHER: None IMPRESSION: FEW, SCATTERED, SMALL FOCI OF ELEVATED T2/FLAIR SIGNAL WITHIN THE PERIVENTRICULAR AND SUBCORTICAL WHITE MATTER. WHILE THESE FINDINGS ARE NONSPECIFIC, THEY CAN BE SEEN IN ASSOCIATION WITH MIGRAINE HEADACHE, THE SEQUELA OF PREVIOUS INFECTION OR INFLAMMATION, AND CHRONIC SMALL VESSEL ISCHEMIA. DEMYELINATING DISEASE IS ALSO WITHIN THE DIFFERENTIAL, BUT IS CONSIDERED LESS LIKELY IN THE ABSENCE OF THE APPROPRIATE CLINICAL PRESENTATION.
[2017-05-02] MEDS ORDERED: NS 0.9% 1000 ML* 1,000 ML IV SCH (13:15)
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
[2017-05-02] MEDS ORDERED: Polyethylene Glycol 3350* 17 GM PACKET PO PRN (18:13)
[2017-05-02 20:27] LABS: EGFR Non-African American 118.5 (>60)
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
[2017-05-03] MEDS: Levothyroxine TAB* 75 MCG TAB PO SCH (05:51)
[2017-05-03 06:08] LABS: EGFR Non-African American 121.1 (>60)
[2017-05-03] MEDS: Insulin LISPRO* 1 UNITS UNIT SUBCUT SCH ×2 (07:40→16:58)
[2017-05-03] MEDS ORDERED: Potassium Chlor TAB* 10 MEQ TAB.ER PO ONE (08:33)
[2017-05-03] MEDS: SODIUM BICARBONATE TOPICAL SCH ×2 (09:22→20:41)
[2017-05-03] MEDS: SODIUM FLUORIDE TOPICAL SCH ×2 (09:22→20:41)
[2017-05-03] MEDS ORDERED: KCL 20 MEQ/100 ML IVPREMIX* 20 MEQ/100 ML BAG IV ONE (13:49)
--- NOTE | 2017-05-03 13:57 | PN ---
Subjective Date of Service: 05/03/17 Interval History: Patient states that she is feeling better. Denies chest pain or shortness of breath. Denies n/v/d. Does report mild lower abd pain, states that she feels full, no BM since admission , would like a stool softener. Family History: Unchanged from Admission Social History: Unchanged from Admission Past Medical History: Unchanged from Admission Objective Active Medications: Acetaminophen (Tylenol Tab*) 650 mg PO Q6H PRN PRN Reason: FEVER/PAIN Last Admin: 04/30/17 12:23 Dose: 650 mg Albuterol (Ventolin 2.5 Mg/3 Ml Neb.Mariama*) 2.5 mg INH Q2H PRN PRN Reason: SOB/WHEEZING Dextrose (D50w Syringe 50 Ml*) 12.5 gm IV PUSH .FOR FS < 60 - SS PRN PRN Reason: FS < 60 Insulin Human Lispro (Humalog*) 0 units SUBCUT 0800,1700 [facility] PRN Reason: Protocol Levothyroxine Sodium (Synthroid Tab*) 75 mcg PO DAILY@0600 [facility] Last Admin: 05/03/17 05:51 Dose: Not Given Lorazepam (Ativan Inj*) 1 mg IV PUSH Q4H PRN PRN Reason: ANXIETY Last Admin: 04/30/17 22:03 Dose: 1 mg Melatonin (Melatonin (Nf)) 3 mg PO BEDTIME PRN; Protocol PRN Reason: Sleep Montelukast Sodium (Singulair Tab*) 10 mg PO DAILY PRN PRN Reason: Allergy Symptoms Pto:Non Formulary ( Sodium Bicarb/Fl 1.1 % Tooth Powder) 1 dose TOPICAL BID [facility] Last Admin: 05/03/17 09:22 Dose: 1 dose Polyethylene Glycol/Electrolytes (Miralax*) 17 gm PO DAILY PRN PRN Reason: CONSTIPATION Vital Signs - 8 hr 05/03/17 05/03/17 05/03/17 07:25 08:06 11:18 Temperature 99.0 F 98.1 F Pulse Rate 93 44 Respiratory 14 16 14 Rate Blood Pressure 118/65 114/62 (mmHg) O2 Sat by Pulse 100 99 Oximetry Oxygen Devices in Use Now: None Appearance: awake and alert, appears comfortable, thin Eyes: No Scleral Icterus Ears/Nose/Mouth/Throat: Clear Oropharnyx, Mucous Membranes Moist Neck: NL Appearance and Movements; NL JVP, Trachea Midline Respiratory: Symmetrical Chest Expansion and Respiratory Effort, Clear to Auscultation Cardiovascular: NL Sounds; No Murmurs; No JVD, No Edema Abdominal: NL Sounds; No Tenderness; No Distention Extremities: No Edema, No Clubbing, Cyanosis Skin: No Rash or Ulcers Neurological: Alert and Oriented x 3 Result Diagrams: 05/02/17 05:35 05/03/17 05:41 Assess/Plan/Problems-Billing Assessment: Ms. Juárez is a 56 y.o female that was brought to the ER for evaluation of carbon monoxide exposure from a natural gas leak from her stove. Pt was found to have o2 saturations in the 70's on EMS's arrival. Patient remains confused and delusional, exhibiting bizarre behaviors. - Patient Problems (1) Confusion and disorientation Current Visit: Yes Status: Acute Code(s): F99 - MENTAL DISORDER, NOT OTHERWISE SPECIFIED SNOMED Code(s): 83920680 Comment: ~unknown etiology - CT brain WNL, urine clear ~ She is also taking tricyclics desipramine- suspect this is a possible toxic effect ~ patient states that she and her doctor have been increasing her dose, reports that she measures the medication on a scale and prepares her own medications. states that she recieves these medications from a compounding pharmacy. ~discussed the serious risks of measuring her own medications and the risk of taking to much. recommended that she not measure her own medications ~ evaluated by Psych ~not a threat to self or other and is safe for discharge when able . ~ neurology consulted ~appreciated ~Patient continues to have strick eating habits~ not eating alot~ instructed patient to have someone bring in food she would like to eat, as we are unable to cook food that she may bring in but we can heat already cooked food up if needed. (2) Hyperglycemia Current Visit: Yes Status: Acute Code(s): R73.9 - HYPERGLYCEMIA, UNSPECIFIED SNOMED Code(s): 47822515 Comment: resolved Blood glucose 95 A1c 5.6 Will change Accu checks to BID along with sliding scale (3) Carbon monoxide exposure Current Visit: Yes Status: Acute Code(s): Z77.29 - CONTACT W AND (SUSPECTED ) EXPOSURE TO OTH HAZARDOUS SUBSTNC SNOMED Code(s): 26731226 Comment: ~ Carbom monoxide level - negative (4) Hyponatremia Current Visit: Yes Status: Acute Code(s): E87.1 - HYPO-OSMOLALITY AND HYPONATREMIA SNOMED Code(s): 07958935 Comment: resolved initial NA level was 123 sodium level remains stable today at 136~ IVF stopped (5) Polyuria Current Visit: Yes Status: Acute Code(s): R35.8 - OTHER POLYURIA SNOMED Code(s): 55057488 Comment: Patient continue to have high urine output ~ improving ~ suspect this could be related to drug toxcitiy ~desipramine level pending ~will continue to monitor BMP and Magnesium and replace as needed ~ catheter removed l (6) Hypokalemia Current Visit: Yes Status: Acute Code(s): E87.6 - HYPOKALEMIA SNOMED Code( s): 58729587 Comment: Resolved~ will continue to monitor d/t high urine output. Potassium level 3.4 today ~ will replace with KCL 20 meq IV as she is refusing oral replacment today. (7) Hypomagnesemia Current Visit: Yes Status: Acute Code(s): E83.42 - HYPOMAGNESEMIA SNOMED Code(s): 925919274 Comment: resolved~ Magnesium level today 2.0 (8) DVT prophylaxis Current Visit: Yes Status: Acute Code(s): EJM8578 - SNOMED Code(s): 766265666 Comment: SCD's (9) Full code status Current Visit: Yes Status: Acute Code(s): Z78.9 - OTHER SPECIFIED HEALTH STATUS SNOMED Code(s): 899160850 Status and Disposition: inpatient ~ will need SS and case management
[2017-05-03] MEDS ORDERED: Potassium Chloride IV* 20 MEQ in NS 0.9% 100 ML* 100 ML IVPB ONE (15:00)
[2017-05-04] MEDS: Levothyroxine TAB* 75 MCG TAB PO SCH (04:29)
[2017-05-04] MEDS: Insulin LISPRO* 1 UNITS UNIT SUBCUT SCH ×2 (07:45→16:48)
--- NOTE | 2017-05-04 12:13 | PN ---
Subjective Date of Service: 05/04/17 Interval History: States that she is anxious about finding a ride home that will not cause her to have a allergic reaction to dogs. c/o of mild burning with urination Patient was up and ambulated in the room gait steady. Denies chest pain, or shortness of breath. Denies abd pain. n/v/d. Family History: Unchanged from Admission Social History: Unchanged from Admission Past Medical History: Unchanged from Admission Objective Active Medications: Acetaminophen (Tylenol Tab*) 650 mg PO Q6H PRN PRN Reason: FEVER/PAIN Last Admin: 04/30/17 12:23 Dose: 650 mg Albuterol (Ventolin 2.5 Mg/3 Ml Neb.Mariama*) 2.5 mg INH Q2H PRN PRN Reason: SOB/WHEEZING Dextrose (D50w Syringe 50 Ml*) 12.5 gm IV PUSH .FOR FS < 60 - SS PRN PRN Reason: FS < 60 Insulin Human Lispro (Humalog*) 0 units SUBCUT 0800,1700 [facility] PRN Reason: Protocol Last Admin: 05/04/17 07:45 Dose: Not Given Levothyroxine Sodium (Synthroid Tab*) 75 mcg PO DAILY@0600 [facility] Last Admin: 05/04/17 04:29 Dose: Not Given Lorazepam (Ativan Inj*) 1 mg IV PUSH Q4H PRN PRN Reason: ANXIETY Last Admin: 04/30/17 22:03 Dose: 1 mg Melatonin (Melatonin (Nf)) 3 mg PO BEDTIME PRN; Protocol PRN Reason: Sleep Montelukast Sodium (Singulair Tab*) 10 mg PO DAILY PRN PRN Reason: Allergy Symptoms Pto:Non Formulary ( Sodium Bicarb/Fl 1.1 % Tooth Powder) 1 dose TOPICAL BID [facility] Last Admin: 05/03/17 20:41 Dose: 1 dose Polyethylene Glycol/Electrolytes (Miralax*) 17 gm PO DAILY PRN PRN Reason: CONSTIPATION Last Admin: 05/03/17 15:29 Dose: 17 gm Vital Signs - 8 hr 05/04/17 05/04/17 05/04/17 07:22 07:45 08:08 Temperature 97.9 F 97.8 F Pulse Rate 44 44 Respiratory 18 18 16 Rate Blood Pressure 93/46 105/51 (mmHg) O2 Sat by Pulse 98 98 99 Oximetry 05/04/17 05/04/17 08:55 11:01 Temperature 98.9 F Pulse Rate 86 47 Respiratory 18 16 Rate Blood Pressure 101/52 (mmHg) O2 Sat by Pulse 98 98 Oximetry Oxygen Devices in Use Now: None Appearance: appears anxious sitting in bed, wearing a full face mask respirator Eyes: No Scleral Icterus Ears/Nose/Mouth/Throat: Clear Oropharnyx, Mucous Membranes Moist Neck: NL Appearance and Movements; NL JVP, Trachea Midline Respiratory: Symmetrical Chest Expansion and Respiratory Effort, Clear to Auscultation Cardiovascular: NL Sounds; No Murmurs; No JVD, No Edema Abdominal: NL Sounds; No Tenderness; No Distention Extremities: No Edema, No Clubbing, Cyanosis Skin: No Rash or Ulcers Neurological: Alert and Oriented x 3, NL Gait Nutrition: Taking PO's Result Diagrams: 05/02/17 05:35 05/04/17 05:47 Assess/Plan/Problems-Billing Assessment: Ms. Juárez is a 56 y.o female that was brought to the ER for evaluation of carbon monoxide exposure from a natural gas leak from her stove. Pt was found to have o2 saturations in the 70's on EMS's arrival. Patient remains confused and delusional, exhibiting bizarre behaviors. - Patient Problems (1) Confusion and disorientation Status: Acute Code(s): F99 - MENTAL DISORDER, NOT OTHERWISE SPECIFIED SNOMED Code(s): 11126320 Comment: ~unknown etiology - CT brain WNL, urine clear ~ She is also taking tricyclics desipramine- suspect this is a possible toxic effect ~ patient states that she and her doctor have been increasing her dose, reports that she measures the medication on a scale and prepares her own medications after dumping them out of the capules that she recieves from the compounding pharmacy. ~discussed again the serious risks of measuring her own medications and the risk of taking to much. recommended that she not measure her own medications and only take what is dispensed to her. ~instructed patient not to restart desipramine until she follows up with her doctor. ~ evaluated by Psych ~not a threat to self or other and is safe for discharge when able . ~ neurology consulted ~appreciated ~Patient continues to have strick eating habits~ not eating alot~ instructed patient to have someone bring in food she would like to eat, as we are unable to cook food that she may bring in but we can heat already cooked food up if needed. ~ Friend did bring some fruits and maple syrup for her to eat. (2) Hyperglycemia Status: Acute Code(s): R73.9 - HYPERGLYCEMIA, UNSPECIFIED SNOMED Code(s): 58870613 Comment: resolved Blood glucose 95 A1c 5.6 Will change Accu checks to BID along with sliding scale (3) Carbon monoxide exposure Status: Acute Code(s): Z77.29 - CONTACT W AND (SUSPECTED ) EXPOSURE TO OTH HAZARDOUS SUBSTNC SNOMED Code(s): 12009648 Comment: ~ Carbom monoxide level - negative (4) Hyponatremia Status: Acute Code(s): E87.1 - HYPO-OSMOLALITY AND HYPONATREMIA SNOMED Code( s): 12408307 Comment: resolved initial NA level was 123 sodium level remains stable today at 136~ IVF stopped (5) Polyuria Status: Acute Code(s): R35.8 - OTHER POLYURIA SNOMED Code(s): 51101144 Comment: Patient continue to have high urine output ~ improving ~ suspect this could be related to drug toxcitiy ~desipramine level pending ~will continue to monitor BMP and Magnesium and replace as needed ~ catheter removed l (6) UTI (urinary tract infection) Status: Acute Comment: Will give a dose of ceftriaxone 1 gram IV Will send in script for bactrim ds 1 tablet BID for 2 days for a total of 3 days treatment. (7) Hypokalemia Status: Acute Code(s): E87.6 - HYPOKALEMIA SNOMED Code(s): 05331259 Comment: Resolved~ will continue to monitor d/t high urine output. Potassium level 4.3 today ~ (8) Hypomagnesemia Status: Acute Code(s): E83.42 - HYPOMAGNESEMIA SNOMED Code(s): 383077213 Comment: resolved (9) DVT prophylaxis Status: Acute Code(s): PUS8305 - SNOMED Code(s): 234987493 Comment: SCD's (10) Full code status Status: Acute Code(s): Z78.9 - OTHER SPECIFIED HEALTH STATUS SNOMED Code(s) : 342905240 Status and Disposition: discharge home
[2017-05-04] MEDS: SODIUM FLUORIDE TOPICAL SCH (12:16)
[2017-05-04] MEDS: SODIUM BICARBONATE TOPICAL SCH (12:16)
[2017-05-04 13:45] LABS: Urine Appearance Cloudy; Urine Blood 2+ (Negative); Urine Color Yellow; Urine Ketones Negative (Negative); Urine Protein 1+(30 mg/dL) (Negative); Urine Specific Gravity 1.009 (1.010-1.030); Urine Urobilinogen Negative (Negative)
[2017-05-04] MEDS ORDERED: cefTRIAXone(*) 1 GM in NS 0.9% 50 ML* 50 ML IVPB ONE (15:01)
[2017-05-04 16:49] VITALS: BP 115/58
--- NOTE | 2017-05-05 16:37 | DS ---
DISCHARGE SUMMARY: DATE OF ADMISSION: 04/29/17 DATE OF DISCHARGE: 05/04/17 ATTENDING PHYSICIAN WHILE IN THE HOSPITAL: Chuck Pace MD* (dictated by Ban Peterson NP). PRIMARY CARE PROVIDER: Currently is Dr. Gayathri Yoo. She is switching to Dr. Jeana Walker. PRIMARY DIAGNOSES: 1. Desipramine toxicity. 2. Anticholinergic reaction. 3. Delirium. 4. Urinary tract infection. 5. Hyponatremia. 6. Hypokalemia. 7. Hypomagnesium. SECONDARY DIAGNOSES: 1. Hypothyroidism. 2. 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 3. Ventricular bigeminy. STUDIES COMPLETED WHILE IN THE HOSPITAL: She had a CT of the brain on 04/29/17 , radiologist impression: No intracranial mass or hemorrhage is noted. She had a chest x-ray on 04/29/17, no active cardiopulmonary disease is noted. She had electrocardiogram on 04/29/17, sinus tachycardia at a rate of 99. She had a MRI of the brain on 05/02/17, radiologist impression: Few scattered small foci of elevated T2 FLAIR signal within the periventricular and subcortical white matter, all these findings are nonspecific, they can be seen in association with migraine headaches as well as sequela of previous infection or inflammation and chronic small vessel ischemia, demyelination disease is also within the differential, but is considered less likely in the absence of appropriate clinical presentation. DISCHARGE MEDICATIONS: She will be discharged on Bactrim DS 1 tablet b.i.d. x2 days. Continued home medications: 1. She can resume her Synthroid. 2. Desipramine, she was advised not to restart this medication until followup with her physician. HISTORY OF PRESENT ILLNESS AND HOSPITAL COURSE: Ms. Juárez is a 56-year-old female who presented via EMS which they were called to her house for possible gas leak, it was noted that there was within the home, Ms. Juárez was hanging out of the window, confused with oxygen saturation of 70%, which promptly increased to 90% with nasal cannula oxygen. After arriving to the emergency room, she reportedly cleared and became briefly lucid after lorazepam , but upon the admitting provider's evaluation, she was unreliable, did not know how she got here, did not know where she was. She was very confused. While in the emergency room, she had a CAT scan of the head which was negative. She was given lorazepam which she cleared briefly from her state of delirium. While in the hospital, the patient became delusional and hallucinating and was transferred to ICU for closer monitoring. She also had a consultation done with Neurology. It is suspected that she had a toxic effect from the desipramine and an anticholinergic delirium reaction. She remained confused for approximately 2 days. She did clear with Ativan and did calm and was able to rest. Prior to the Ativan, she was yelling and screaming and unable to follow commands. Throughout her hospitalization, she was continued to be monitored. She did note to have polyuria, some hyponatremia and hypomagnesium, which her electrolytes were replaced as needed during her hospitalization. LABORATORY DATA: The patient's lab work was monitored throughout her hospitalization and was within normal limits at discharge. Her potassium level at discharge was 4.3, magnesium was 2.0, sodium was 134. Ms. Juárez is very self consumed with her allergy to DOGS and CATS. She does wear a full face respirator if she thinks she may come in contact with them. Today, Ms. Juárez is stable for discharge home. Upon discussing her discharge plan, the patient did become anxious and was concerned about how she would return home without exposure to dogs. Ms. Juárez was reassured that she would return home safely. At this time, Ms. Juárez is stable for discharge home. Ms. Juárez is stable for discharge home today. PHYSICAL EXAM: Vital signs are as follows: Temp was 98.3, heart rate was 60, respirations 16, O2 saturation was 98% on room air, blood pressure 115/58. DISCHARGE PLAN: 1. Ms. Juárez will be discharged home. 2. Activity as tolerated. 3. She should continue her regular diet. 4. For her urinary tract infection, she should continue Bactrim DS 1 tablet p.o. b.i.d. for 2 days. 5. Polyuria has resolved. 6. Hyperkalemia has resolved. 7. Hypomagnesium, resolved. 8. Ventricular bigeminy. The patient is asymptomatic. She had a full workup in April 2016 and at that time did not want any further treatment. Ms. Juárez continues to be asymptomatic with her ventricular bigeminy during her hospitalization. 9. Desipramine toxicity. The patient was advised not to continue desipramine until she followed up with Dr. Nuno for further directions. The patient was also advised not to break open capsules and measure her own medications and to take the dosing as provided to her from the compounding pharmacy that she uses as her scale is not calibrated and that this could cause dangerous side effects including toxicity an overdose. Ms. Juárez verbalized understanding. ASSESSMENT: Ms. Juárez should follow up with her primary care provider in 4 to 7 days. She was advised to return to the emergency room for any changes in mentation, shortness of breath or chest pain. This is a summary of her hospitalization. For further details, please see the entire medical record. TIME SPENT: Time spent on this discharge was approximately 60 minutes, greater than half the time was spent with the patient reviewing discharge plans and instructions. CONDITION ON DISCHARGE: Stable. BAN PETERSON NP [id number]/CPS #: [id number] [place]
== END 2017-05-04 18:26 | disposition home or self-care (01) | DRG 812 ==
LOC: ED 18:47 → MEDTELE 22:19 → OBSVTOIN 04-30 13:39 → ICU 04-30 13:47 → MEDTELE 05-01 14:34
PROVIDERS: ADMIT Hospitalist; ATTEND Internal Medicine
DX: T43.011A Poisoning by tricyclic antidepressants, accidental (unintentional), initial encounter (principal); E83.42 Hypomagnesemia; E87.1 Hypo-osmolality and hyponatremia; N39.0 Urinary tract infection, site not specified; R41.0 Disorientation, unspecified; E03.9 Hypothyroidism, unspecified; R73.9 Hyperglycemia, unspecified; T44.3X1A Poisoning by other parasympatholytics [anticholinergics and antimuscarinics] and spasmolytics, accidental (unintentional), initial encounter; R09.02 Hypoxemia; E86.0 Dehydration; Z77.29 Contact with and (suspected) exposure to other hazardous substances; F22 Delusional disorders; R35.8 Other polyuria; E87.6 Hypokalemia; K90.0 Celiac disease; F21 Schizotypal disorder; R00.8 Other abnormalities of heart beat; Z88.0 Allergy status to penicillin; Z83.2 Family history of diseases of the blood and blood-forming organs and certain disorders involving the immune mechanism; Z84.89 Family history of other specified conditions; Z91.09 Other allergy status, other than to drugs and biological substances; Y92.9 Unspecified place or not applicable
CPT/HCPCS: 36415; 70030; 70450; 70551; 71045; 74018; 80048; 80053; 80307; 80320; 80329; 80335; 81003; 81015; 82140; 82306; 82375; 82533; 82550; 82607; 83036; 83735; 83930; 83935; 84300; 84425; 84443; 84450; 84460; 85025; 87077; 87086; 87186; 93005; 94760; 99285; A9270-GY; G0480; J0696; J2060; J3411; J3420; J3475; J3480

== ENCOUNTER 2017-05-13 07:35 | Emergency (ER) | payer BC ==
[2017-05-13 08:03] VITALS: BP 126/66
--- NOTE | 2017-05-13 08:23 | UC ---
Complaint Female HPI - HPI Summary HPI Summary: PT WAS TX FOR UTI WITH BACTRIM - COMPLETED COURSE 05/10/17. YESTERDAY SX OF DYSURIA AND LOWER ABD PAIN RETURNED. NO FEVER OR NAUSEA. NO VAGINAL D/C. STATES SHE HAS NOT BEEN SEXUALLY ACTIVE IN A LONG TIME AND IS NOT CONCERNED ABOUT STD. PT HAS OVERALL MALAISE. - History Of Current Complaint Chief Complaint: UCGU Stated Complaint: URINARY ISSUE Time Seen by Provider: 05/13/17 08:11 Hx Obtained From: Patient Onset/Duration: Gradual Onset, Lasting Days, Still Present Severity Initially: Mild Severity Currently: Mild Pain Intensity: 1 Pain Scale Used: 0-10 Numeric Character: Burning Aggravating Factor(s): Urination Alleviating Factor(s): Nothing Associated Signs And Symptoms: Negative: Fever, Back Pain, Vaginal Bleeding/ Discharge, Vaginal Discharge, Nausea, Genital Swelling, Genital Blisters - Allergies/Home Medications Allergies/Adverse Reactions: Allergies Allergy/AdvReac Type Severity Reaction Status Date / Time Penicillins Allergy See Comment Verified 05/13/17 07:48 PMH/Surg Hx/FS Hx/Imm Hx - Additional Past Medical History Additional PMH: ALLERGIES Endocrine History: Hypothyroidism - Surgical History Surgical History: Yes Surgery Procedure, Year, and Place: knee surgery; shoulder surgeries - Family History Known Family History: Negative: Cardiac Disease, Hypertension, Diabetes Family History: FHx of allergies. FHx of autoimmune disease - Social History Alcohol Use: None Substance Use Type: None Smoking Status (MU): Never Smoked Tobacco Review of Systems Constitutional: Negative Skin: Negative Respiratory: Negative Cardiovascular: Negative Gastrointestinal: Abdominal Pain Genitourinary: Dysuria, Frequency, Vaginal/Penile Itching All Other Systems Reviewed And Are Negative: Yes Physical Exam Triage Information Reviewed: Yes Appearance: Well-Appearing, No Pain Distress, Well-Nourished Vital Signs: Initial Vital Signs Temp 99.5 F 05/13/17 07:52 Pulse 52 05/13/17 07:52 Resp 18 05/13/17 07:52 BP 126/66 05/13/17 07:52 Pulse Ox 99 05/13/17 07:52 Vital Signs Reviewed: Yes Eyes: Positive: Conjunctiva Clear ENT: Positive: Hearing grossly normal Neck: Positive: Supple Respiratory: Positive: No respiratory distress, No accessory muscle use Cardiovascular: Positive: Pulses Normal Abdomen Description: Positive: Soft, Other: - MILDLY TENDER SUPRAPUBIC REGION. NO REBOUND OR RIGIDITY. Negative: CVA Tenderness (R), CVA Tenderness (L), Distended, Guarding Pelvic Exam: Positive: External Exam Normal, No Cerv. Motion Tender, No Masses. Negative: Active Bleeding, Blood, Discharge, Lesions, Mass Musculoskeletal: Positive: No Edema Neurological: Positive: Alert Psychological: Positive: Age Appropriate Behavior Skin: Negative: rashes Diagnostics - Laboratory Diagnostic Studies Completed/Ordered: URINE DIP SP. GR. 1.010, 1+ BLOOD Complaint Female Dx - Course Course Of Treatment: PELVIC EXAM GROSSLY UNREMARKABLE. EXPECTED VAGINAL ATROPHY. SWAB FOR VAGINITIS OBTAINED. PT DECLINES STD TESTING. STATES NO SEXUAL CONTACT. URINE DIP WITH ONLY BLOOD. PT REPORTS A H/O MICROSCOPIC HEMATURIA. PT ADVISED TO CONTINUE TO FOLLOW WITH HER PCP OR UROLOGY FOR THIS. UNCLEAR CAUSE OF PT SX. ADVISED TO STAY HYDRATED AND F/U WITH PCP OR UROLOGY IF SX PERSIST. TO ED IF SX WORSEN. - Differential Dx/Diagnosis Provider Diagnoses: DYSURIA/PELVIC PAIN Discharge - Sign-Out/Discharge Documenting (check all that apply): Discharge - Discharge Plan Condition: Stable Disposition: HOME Patient Education Materials: Dysuria (ED), Pelvic Pain (ED) Referrals: Jeana Walker MD [Primary Care Provider] - If Needed Tristen Raya MD [Medical Doctor] - 2 Weeks Additional Instructions: Unclear cause of your symptoms today. Your urine dip showed some microscopic hematuria which you state is normal for you. Continue to follow this with your regular doctor or urologist. Pelvic exam was done and unremarkable. Swabs were taken to test for vaginitis. We will also send your urine specimen for culture to confirm no infection. Be sure to stay well hydrated. If your symptoms persist and all testing is negative would follow up with urology for further evaluation. Go to the ER without fail if you develop worsening pain, fever, darlin blood in the urine, inability to pass urine or any other concerning symptoms. - Billing Disposition and Condition Condition: STABLE Disposition: HOME
--- NOTE | 2017-05-15 17:07 | UC ---
- Progress Note Progress Note: Call patient and assure sx have resolved---If not follow with pcp no uti or vaginal infection noted on labs Discharge - Sign-Out/Discharge Documenting (check all that apply): Post-Discharge Follow Up - Discharge Plan Condition: Stable Disposition: HOME Patient Education Materials: Dysuria (ED), Pelvic Pain (ED) Referrals: Jeana Walker MD [Primary Care Provider] - If Needed Tristen Raya MD [Medical Doctor] - 2 Weeks Additional Instructions: Unclear cause of your symptoms today. Your urine dip showed some microscopic hematuria which you state is normal for you. Continue to follow this with your regular doctor or urologist. Pelvic exam was done and unremarkable. Swabs were taken to test for vaginitis. We will also send your urine specimen for culture to confirm no infection. Be sure to stay well hydrated. If your symptoms persist and all testing is negative would follow up with urology for further evaluation. Go to the ER without fail if you develop worsening pain, fever, darlin blood in the urine, inability to pass urine or any other concerning symptoms. - Billing Disposition and Condition Condition: STABLE Disposition: HOME
== END 2017-05-13 09:37 | disposition home or self-care (01) ==
LOC: UCEAST 07:35
DX: R30.0 Dysuria (principal); R10.2 Pelvic and perineal pain; Z87.440 Personal history of urinary (tract) infections; Z88.0 Allergy status to penicillin
CPT/HCPCS: 81003; 87077; 87086; 87186; 87480; 87510; 87660; 99212; G0463

== ENCOUNTER 2018-01-08 07:33 | Emergency (ER) | payer BC ==
--- NOTE | 2018-01-08 07:44 | UC ---
Complaint Female HPI - HPI Summary HPI Summary: Patient is 57 year old female who present today with mid lower abdominal pain for past 2 days. There is some associated dysuria and some frequency. She denies any recent fevers or chills. She denies any cough chest pain or shortness of breath . No diaphoresis. Denies nausea or vomiting , diarrhea or constipation. Denies any bleeding or any other symptoms. She is wearing a respirator mask and is allergic to cats and dogs She also reports left big toe swelling and pain next to the nail on the inside aspect of the big toenail that has been going on for about 2 weeks now. - History Of Current Complaint Stated Complaint: UTI Time Seen by Provider: 01/08/18 07:43 Hx Obtained From: Patient - Allergies/Home Medications Allergies/Adverse Reactions: Allergies Allergy/AdvReac Type Severity Reaction Status Date / Time Penicillins Allergy See Comment Verified 01/08/18 07:48 Home Medications: Home Medications Montelukast Sodium TAB* [Singulair TAB*] 10 mg PO DAILY 01/08/18 [History Confirmed 01/08/18] PMH/Surg Hx/FS Hx/Imm Hx - Additional Past Medical History Additional PMH: Allergic rhinitis Previously Healthy: Yes Endocrine History: Hypothyroidism Other Endocrine History: negative Other Cardiovascular History: negative Other Respiratory History: negative Other GI/ History: negative Other Neurological History: negative Other Psychological History: negative Other Cancer History: negative - Surgical History Surgical History: Yes Surgery Procedure, Year, and Place: knee surgery; shoulder surgeries - Family History Known Family History: Negative: Cardiac Disease, Hypertension, Diabetes Family History: FHx of allergies. FHx of autoimmune disease - Social History Alcohol Use: None Substance Use Type: None Smoking Status (MU): Never Smoked Tobacco Review of Systems All Other Systems Reviewed And Are Negative: Yes Constitutional: Positive: Negative Skin: Positive: Negative Eyes: Positive: Negative ENT: Positive: Negative Respiratory: Positive: Negative Cardiovascular: Positive: Negative Gastrointestinal: Positive: Abdominal Pain - Mid lower abdomen/pelvic area Genitourinary: Positive: Dysuria, Frequency Motor: Positive: Negative Neurovascular: Positive: Negative Musculoskeletal: Positive: Other: - Swelling and pain of the left big toe Neurological: Positive: Negative Psychological: Positive: Negative Is Patient Immunocompromised?: No Physical Exam - Summary Physical Exam Summary: Physical Exam: Const: Appears well. No signs of apparent distress present. Alert and oriented x 3. Musculo: Walks with a normal gait. Head/Face: Atraumatic, normocephalic on inspection. Eyes: EOMI and PERRLA in both eyes. Conjunctivae clear. No discharge noted ENT: Hearing normal, TM normal appearing bilaterally . Respiratory: Respirations are unlabored. Lungs clear to auscultation bilaterally, no wheezing , rhonchi or rales noted . CVS: Regular rate and Rhythm, S1S2 normal , no murmurs identified. Extremities: Peripheral circulation is grossly normal. Pulses 2+ Abdomen : Soft, there is mild tenderness in the lower abdominal and in the midline inferior to the umbilicus, Bowel sounds present . No guarding , rebound tenderness or rigidity noted. Skin: No lesions or rash located on the upper extremities or on the lower extremities. Neuro: Cranial nerves II to XII intact, motor and sensory intact. DTR Intact bilaterally. Mood is normal. Affect is normal. Left big toe: Erythema and swelling is noted on the medial aspect of the left big toe next to the nail. No drainage. No fluctuation noted Triage Information Reviewed: Yes Vital Signs Reviewed: Yes Complaint Female Dx - Course Course Of Treatment: During the visit today, we obtained urinalysis which demonstrated trace ketones and 2+ blood . We discussed the findings and further plan to treat it for UTI/cystitis . Since she also has paronychia plan to start her on Bactrim which will cover both. I will prescribe the medication to the pharmacy . She gets her medications from [facility]. She has mild ketonuria for which she will follow up with her primary care doctor. Patient expressed understanding . - Differential Dx/Diagnosis Provider Diagnoses: Urinary tract infection. left great toe paronychia Discharge - Sign-Out/Discharge Documenting (check all that apply): Patient Departure All imaging exams completed and their final reports reviewed: No Studies - Discharge Plan Condition: Stable Disposition: HOME Prescriptions: Sulfamethox/Trimethoprim DS* [Bactrim DS 800/160 TAB*] 1 tab PO BID 7 Days #14 tab Patient Education Materials: Urinary Tract Infection in Women (ED), Paronychia (ED) Referrals: Jeana Walker MD [Primary Care Provider] - 2 Days Additional Instructions: Please start taking the medication as prescribed to the pharmacy . Urine culture was ordered today,somebody will call you with the results when available . Some ketones were noticed on the urine today , please follow up with your primary care doctor in 2-3 days. Return to Urgent care / ER if symptoms get worse. - Billing Disposition and Condition Condition: STABLE Disposition: Home
[2018-01-08 07:48] VITALS: BP 111/64
--- NOTE | 2018-01-09 15:21 | UC ---
- Progress Note Progress Note: Please notify pt her urine culture was negative NO UTI STOP antibiotic She had microscopic hematuria and she should see her PCP for evaluation of this Discharge - Sign-Out/Discharge Documenting (check all that apply): Post-Discharge Follow Up All imaging exams completed and their final reports reviewed: No Studies - Discharge Plan Condition: Stable Disposition: HOME Prescriptions: Sulfamethox/Trimethoprim DS* [Bactrim DS 800/160 TAB*] 1 tab PO BID 7 Days #14 tab Patient Education Materials: Urinary Tract Infection in Women (ED), Paronychia (ED) Referrals: Jeana Walker MD [Primary Care Provider] - 2 Days Additional Instructions: Please start taking the medication as prescribed to the pharmacy . Urine culture was ordered today,somebody will call you with the results when available . Some ketones were noticed on the urine today , please follow up with your primary care doctor in 2-3 days. Return to Urgent care / ER if symptoms get worse. - Billing Disposition and Condition Condition: STABLE Disposition: Home
== END 2018-01-08 08:38 | disposition home or self-care (01) ==
LOC: UCEAST 07:33
DX: N39.0 Urinary tract infection, site not specified (principal); L03.032 Cellulitis of left toe; Z88.0 Allergy status to penicillin
CPT/HCPCS: 81003; 87086; 99212; G0463